=== PATIENT | female | born 1995 | race Caucasian/White ===

== ENCOUNTER 2017-03-05 13:42 | Emergency (ER) | payer OTHER ==
[2017-03-05] MEDS ORDERED: ACETAMINOPHEN 325 MG TABLET PO ONE (14:04)
--- NOTE | 2017-03-05 14:13 | ER Document Report ---
ED Medical Screen (RME) - General Chief Complaint: Flank Pain Stated Complaint: FLANK PAIN Time Seen by Provider: 03/05/17 13:51 Mode of Arrival: Ambulatory Information source: Patient TRAVEL OUTSIDE OF THE [place] IN LAST 30 DAYS: No - HPI Patient complains to provider of: Right flank pain with dysuria Notes: 03/05/17 14:12 Patient is a 21-year-old female presenting to the emergency room complaining of right flank pain with dysuria and urinary frequency, slightly elevated temperature, slightly elevated heart rate - Related Data Allergies/Adverse Reactions: No Known Allergies Allergy (Verified 03/05/17 14:02) Home Medications: Current Home Medications No Home Medications 03/05/17 [History] Past Medical History - Social History Chew tobacco use (# tins/day): No Frequency of alcohol use: None Drug Abuse: None Renal/ Medical History: Denies: Hx Peritoneal Dialysis Past Surgical History: Reports: Hx Appendectomy - Immunizations Hx Diphtheria, Pertussis, Tetanus Vaccination: Yes History of Influenza Vaccine for 03/2017 - 07/2017 Season: No Physical Exam - Vital signs Vitals: Temp Pulse Resp BP Pulse Ox 99.5 F 115 H 16 122/64 98 03/05/17 13:47 03/05/17 13:47 03/05/17 13:47 03/05/17 13:47 03/05/17 13:47 Course - Vital Signs Vital signs: Temp Pulse Resp BP Pulse Ox 99.5 F 115 H 16 122/64 98 03/05/17 13:47 03/05/17 13:47 03/05/17 13:47 03/05/17 13:47 03/05/17 13:47
[2017-03-05 15:08] LABS: APPEARANCE,URINE CLOUDY; BILIRUBIN,URINE NEGATIVE (NEGATIVE); GLUCOSE, URINE NEGATIVE (NEGATIVE); KETONES,URINE 20 mg/dL (NEGATIVE); LEUKOCYTE ESTERASE,URINE LARGE (NEGATIVE); NITRITE,URINE POSITIVE (NEGATIVE); PROTEIN,URINE 30 mg/dL (NEGATIVE); URINE SPECIFIC GRAVITY 1.009; UROBILINOGEN,URINE NEGATIVE mg/dL (<2.0)
[2017-03-05] MEDS ORDERED: IBUPROFEN 600 MG TABLET PO ONE (15:08)
[2017-03-05] MEDS ORDERED: ONDANSETRON 4 MG TAB.RAPDIS PO ONE (15:08)
--- NOTE | 2017-03-05 15:11 | ER Document Report ---
ED General - General Chief Complaint: Flank Pain Stated Complaint: FLANK PAIN Time Seen by Provider: 03/05/17 13:51 Mode of Arrival: Ambulatory Notes: 21-year-old female presents with 2 days of right flank pain dysuria urinary frequency, moderate, increasing associated with decreased appetite but no nausea vomiting fever. Positive sexual activity. History of one UTI in the past. Denies hematuria or prior kidney stones. TRAVEL OUTSIDE OF THE [place] IN LAST 30 DAYS: No - Related Data Allergies/Adverse Reactions: No Known Allergies Allergy (Verified 03/05/17 14:02) Past Medical History - General Information source: Patient - Social History Smoking Status: Never Smoker Chew tobacco use (# tins/day): No Frequency of alcohol use: None Drug Abuse: None Family History: None - Medical History Notes: Kidney infection Renal/ Medical History: Denies: Hx Peritoneal Dialysis Past Surgical History: Reports: Hx Appendectomy - Immunizations Hx Diphtheria, Pertussis, Tetanus Vaccination: Yes Review of Systems - Review of Systems Notes: REVIEW OF SYSTEMS GEN: Denies fever, chills, weight loss ENT: Denies sore throat, nasal discharge, ear pain EYES: Denies blurry vision, eye pain, discharge CV: Denies chest pain, palpitations, edema RESP: Denies cough, shortness of breath, wheezing GI: Denies abdominal pain, nausea, vomiting, diarrhea MSK: Sided back pain SKIN: Denies rash, skin lesions LYMPH: Denies swollen glands/lymph nodes NEURO: Denies headache, focal weakness or numbness, dizziness PSYCH: Denies depression, suicidal or homicidal ideation PHYSICAL EXAMINATION General: No acute distress, well-nourished Head: Atraumatic, normocephalic ENT: Mouth normal, oropharynx moist, no exudates or tonsillar enlargement Eyes: Conjunctiva normal, pupils equal, lids normal Neck: No JVD, supple, no guarding CVS: Normal rate, regular rhythm, no murmurs Resp: No resp distress, equal and normal breath sounds bilaterally GI: Nondistended, soft, no tenderness to palpation, no rebound or guarding Ext: No deformities, no edema, normal range of motion in upper and lower ext Back: Normal right CVA tenderness Skin: No rash, warm Lymphatic: No lymphadeopathy noted Neuro: Awake, alert. Face symmetric. GCS 15. Physical Exam - Vital signs Vitals: Temp Pulse Resp BP Pulse Ox 99.5 F 115 H 16 122/64 98 03/05/17 13:47 03/05/17 13:47 03/05/17 13:47 03/05/17 13:47 03/05/17 13:47 Course - Re-evaluation Re-evalutation: 03/05/17 15:10 Very well-appearing 21-year-old female presents with signs and symptoms of pyelonephritis. She is mildly tachycardic but not truly febrile I doubt she will meet sepsis criteria. She will be given oral ibuprofen and Zofran, oral hydration. Labs were ordered at triage I will await these. 03/05/17 17:19 Patient's lab testing shows slight dehydration and mild elevation in white count. Despite this he looks quite well I do not believe she is truly septic. Child received on her buttocks in the ED tolerated fluids, and her heart rate on my exam is in the 90s. She agrees to outpatient management with Motrin Zofran and Bactrim for a full course and will return to the ED if she is any worse at any time. I have discussed with the patient there likely diagnosis, aftercare plan, follow -up plans and my usual and customary return precautions. They verbalized understanding of this. - Vital Signs Vital signs: Temp Pulse Resp BP Pulse Ox 99.5 F 115 H 16 122/64 98 03/05/17 13:47 03/05/17 13:47 03/05/17 13:47 03/05/17 13:47 03/05/17 13:47 - Laboratory Result Diagrams: 03/05/17 15:44 03/05/17 15:44 Laboratory results interpreted by me: 03/05/17 03/05/17 03/05/17 14:30 15:44 15:44 WBC 16.0 H Seg Neutrophils % 80.4 H Lymphocytes % 9.0 L Absolute Neutrophils 12.8 H Absolute Monocytes 1.7 H Sodium 136.7 L Direct Bilirubin 0.5 H AST 13 L Urine Protein 30 H Urine Ketones 20 H Urine Blood SMALL H Urine Nitrite POSITIVE H Ur Leukocyte Esterase LARGE H Discharge - Discharge Clinical Impression: Pyelonephritis Condition: Good Disposition: HOME, SELF-CARE Instructions: Antibiotic Therapy ([facility]), Antinausea Medication ([facility]), Pyelonephritis ([facility]) Prescriptions: Ibuprofen [Motrin 600 Mg Tablet] 600 mg PO TID #15 tablet Ondansetron [Zofran Odt 4 mg Tablet] 1 - 2 tab PO Q4H PRN #15 tab.rapdis PRN Reason: For Nausea/Vomiting Sulfamethoxazole/Trimethoprim [Bactrim Ds Tablet] 1 each PO BID #20 tablet
[2017-03-05] MEDS ORDERED: SULFAMETHOXAZOLE/TRIMETHOPRIM 800-160 MG TABLET PO ONE (15:28)
[2017-03-05 16:00] LABS: ABSOLUTE LYMPHOCYTES (AUTO) 1.4 10^3/uL (0.5-4.7); ABSOLUTE MONOCYTES (AUTO) 1.7 10^3/uL (0.1-1.4); ABSOLUTE NEUT (AUTO) 12.8 10^3/uL (1.7-8.2); BASOPHILS % (AUTO) 0.1 % (0-2); HEMATOCRIT 39.9 % (36.0-47.0); HGB HCT DIFFERENCE 2.1; MEAN CORPUSCULAR HEMOGLOBIN 29.7 pg (27.0-33.4); MEAN CORPUSCULAR HGB CONC 35.1 g/dL (32.0-36.0); MEAN CORPUSCULAR VOLUME 85 fl (80-97); MONOCYTES % (AUTO) 10.5 % (3-13); RED BLOOD COUNT 4.71 10^6/uL (3.72-5.28); RED CELL DISTRIBUTION WIDTH 12.7 % (11.5-14.0); SEGMENTED NEUTROPHILS % (AUTO) 80.4 % (42-78)
[2017-03-05 16:18] LABS: ALANINE AMINOTRANSFERASE 28 U/L (9-52); ALBUMIN 4.1 g/dL (3.5-5.0); ALKALINE PHOSPHATASE 108 U/L (38-126); ANION GAP 12 (5-19); ASPARTATE AMINO TRANSFERASE 13 U/L (14-36); BILIRUBIN,DIRECT 0.5 mg/dL (0.0-0.4); BILIRUBIN,TOTAL 1.3 mg/dL (0.2-1.3); BLOOD UREA NITROGEN 8 mg/dL (7-20); CALCIUM 9.4 mg/dL (8.4-10.2); CARBON DIOXIDE 24 mmol/L (22-30); CHLORIDE 101 mmol/L (98-107); CREATININE RESULT 0.56 mg/dL (0.52-1.25); GLUCOSE 89 mg/dL (75-110); LIPASE 61.3 U/L (23-300); POTASSIUM 4.1 mmol/L (3.6-5.0); SODIUM 136.7 mmol/L (137-145)
[2017-03-05 17:33] VITALS: BP 134/75
== END 2017-03-05 17:36 | disposition home or self-care (01) ==
LOC: ER 13:42
DX: N12 Tubulo-interstitial nephritis, not specified as acute or chronic (principal); R00.0 Tachycardia, unspecified; E86.0 Dehydration
CPT/HCPCS: 99284; 36415; 87086; 83690; 84703; 85025; 87088; 80053; 81001; 87186; S0119

== ENCOUNTER 2017-12-21 04:41 | Outpatient (CLI) | payer SELFPAY ==
[2017-12-21 05:28] LABS: ABSOLUTE EOSINOPHILS # (AUTO) 0.1 10^3/uL (0.0-0.6); ABSOLUTE NEUT (AUTO) 9.9 10^3/uL (1.7-8.2); BASOPHILS % (AUTO) 0.3 % (0-2); EOSINOPHILS % (AUTO) 0.5 % (0-6); LYMPHOCYTES % (AUTO) 15.4 % (13-45); MEAN CORPUSCULAR HEMOGLOBIN 30.2 pg (27.0-33.4); MEAN CORPUSCULAR VOLUME 86 fl (80-97); MONOCYTES % (AUTO) 7.5 % (3-13); PLATELET COUNT 251 10^3/uL (150-450); RED CELL DISTRIBUTION WIDTH 12.7 % (11.5-14.0); SEGMENTED NEUTROPHILS % (AUTO) 76.3 % (42-78); TOTAL CELLS COUNTED % (AUTO) 100 %
--- NOTE | 2017-12-21 06:21 | RADIOLOGY REPORT (SQ) ---
Ultrasound limited on 12/21/2017 at 5:40 AM CLINICAL INDICATION: Generalized abdominal pain, no care COMPARISON: None FINDINGS: Limited sonographic imaging is performed throughout the pelvis by transabdominal approach, both transverse and sagittal images are obtained. Single living intrauterine fetus is noted in cephalic presentation. Positive cardiac activity is noted with a heart rate of 143 bpm. Placenta is posterior in location with no evidence of placenta previa or abruption. Normal amount of amniotic fluid is noted with amniotic fluid index of 13.4 cm. Estimated gestational age by measurements is an approximate 33 week one day gestation with estimated due date of 02/07/2018. Estimated weight is 4 lbs. 12 oz. +/- 11 ounces. This is at the 36th percentile. Cervical length measures approximately 3.6 cm. IMPRESSION: Single living approximate 33 week one day fetus in cephalic presentation.
[2017-12-21 06:28] LABS: URINE AMPHETAMINES SCREEN NEGATIVE; URINE BENZODIAZEPINES SCREEN NEGATIVE; URINE COCAINE SCREEN NEGATIVE; URINE MARIJUANA (THC) SCREEN NEGATIVE; URINE METHADONE SCREEN NEGATIVE; URINE PHENCYCLIDINE SCREEN NEGATIVE
[2017-12-21] MEDS ORDERED: RINGERS SOLUTION,LACTATED 1,000 ML IV ONE (06:29)
[2017-12-21 06:30] LABS: APPEARANCE,URINE SLIGHTLY-CLOUDY; BILIRUBIN,URINE NEGATIVE (NEGATIVE); COLOR,URINE LIGHT YELLOW; GLUCOSE, URINE NEGATIVE (NEGATIVE); KETONES,URINE NEGATIVE (NEGATIVE)
[2017-12-21 06:31] LABS: RUBELLA INTERPRETATION POSITIVE
[2017-12-21 06:31] LABS: PROTEIN,URINE 30 mg/dL (NEGATIVE); URINE SPECIFIC GRAVITY 1.023
[2017-12-21 06:32] LABS: LEUKOCYTE ESTERASE,URINE NEGATIVE (NEGATIVE); NITRITE,URINE NEGATIVE (NEGATIVE)
[2017-12-21 06:33] LABS: CALCIUM OXALATE CRYSTALS,URINE FEW /HPF
[2017-12-21 06:42] LABS: URINE BARBITURATES SCREEN NEGATIVE
[2017-12-21] MEDS ORDERED: ONDANSETRON HCL INJ/PF 4 MG/2 ML SDV IV ONE (07:23)
[2017-12-23 05:40] LABS: HEPATITIS C VIRUS AB <0.1 s/co ratio (0.0-0.9)
[2017-12-23 09:07] LABS: HEPATITS B SURFACE ANTIGEN Negative (Negative)
== END 2017-12-21 08:30 | disposition home or self-care (01) ==
LOC: LC 04:41
PROVIDERS: ATTEND Obstetrics & Gynecology
PROC: 4A1HXCZ Monitoring of Products of Conception, Cardiac Rate, External Approach (ICD-10-PCS; principal; 2017-12-21)
DX: O99.613 Diseases of the digestive system complicating pregnancy, third trimester (principal); K52.9 Noninfective gastroenteritis and colitis, unspecified; O99.283 Endocrine, nutritional and metabolic diseases complicating pregnancy, third trimester; E86.0 Dehydration; Z3A.30 30 weeks gestation of pregnancy
CPT/HCPCS: 36415; 59025; 76815; 80307; 81001; 85025; 86592; 86701; 86762; 86803; 86804; 86850; 86900; 86901; 87340